=== PATIENT | male | born 1980 | race Caucasian/White ===

== ENCOUNTER 2018-03-19 23:47 | Emergency (ER) | payer OTHER, MEDICAID ==
[~2018-03-19] VITALS: Ht 188 cm; Wt 145.5 kg
[2018-03-19] MEDS ORDERED: LISI1TAB11 PO (23:54)
[2018-03-19] MEDS ORDERED: LABE200T PO (23:54)
[2018-03-20] MEDS ORDERED: LORazepam 2 MG TABLET PO ONE (01:15)
[2018-03-20 02:14] VITALS: BP 142/78
== END 2018-03-20 02:30 | disposition home or self-care (01) ==
LOC: EMS 23:48
DX: R45.1 Restlessness and agitation (principal); I10 Essential (primary) hypertension
CPT/HCPCS: 99284